=== PATIENT | male | born 1980 | race African-American/Black ===

== ENCOUNTER → 2016-07-10 | Outpatient (CLI) | payer BC ==
--- NOTE | 2016-07-10 19:59 | DI ---
PA /LATERAL CHEST X-RAY, 07/10/2016 5:29 PM : Clinical History: Cough. Previous Exam: 06/13/2015. On both views the patient took a very shallow inspiration. There is no acute soft tissue or bony abno rmality. Heart size is normal for the shallow inspiratory effort. Lungs are clear. Mediastinal struct ures are normal. There are no pulmonary nodules. Reading: Normal chest x-ray for this shallow inspiratory effort. There has been no interval change.
== END ==
LOC: RAD 17:47
PROVIDERS: ATTEND Physician Assistant Medical
DX: R05 Cough (principal)
CPT/HCPCS: 71020